=== PATIENT | male | born 1990 | race Caucasian/White ===

== ENCOUNTER 2018-01-04 16:44 | Inpatient (IN) ==
[2018-01-04] MEDS ORDERED: Sodium Chloride 0.9% 1,000 ML PRIMARY IV ONE ×2 (17:11→18:34)
[2018-01-04 17:20] LABS: BILIRUBIN,URINE SMALL (NEG); CLARITY,URINE Slightly Cloudy (CLEAR); COLOR,URINE YELLOW (Y); GLUCOSE, URINE (UA) NEGATIVE (NEG); OCCULT BLOOD,URINE MODERATE (NEG); PROTEIN,URINE 100 mg/dl (NEG)
[2018-01-04 17:22] LABS: Hematocrit [HCT] 40.9 % (42.0-52.0); Hemoglobin [HGB] 14.6 g/dL (14.0-18.0); MEAN CORPUSCULAR HEMOGLOBIN 31.7 PG (27-31); MEAN CORPUSCULAR HGB CONC 35.7 g/dL (33-37); MEAN CORPUSCULAR VOLUME 88.9 FL (80-90)
[2018-01-04 17:29] LABS: RBC,URINE 25-30 /hpf; SQUAMOUS EPITHELIAL CELL,UR RARE; URINE SAMPLE TYPE CLEAN CATCH URINE; WBC,URINE 25-30
[2018-01-04 17:30] LABS: BACTERIA,URINE FEW
[2018-01-04 17:31] LABS: BUN/CREATININE RATIO 11.87 (6-20); SERUM ALBUMIN 3.7 g/dL (3.5-4.8)
[2018-01-04 17:37] LABS: PLATELET MORPHOLOGY COMMENT NORMAL MORPHOLOGY (NORM); RBC MORPHOLOGY COMMENT NORMAL MORPHOLOGY (NORM)
[2018-01-04 17:38] LABS: BAND NEUTROPHILS % 17 % (0-10); BASOPHILS % (MANUAL) 0 % (0-1); EOSINOPHILS % (MANUAL) 0 % (0-8); MONOCYTES % (MANUAL) 6 % (0-12); NEUTROPHILS % (MANUAL) 74 % (50-80); WBC MORPHOLOGY COMMENT SEE COMMENTS (NORM)
[2018-01-04] MEDS ORDERED: cefTRIAXone Inj 2 GM in Sodium Chloride 0.9% 100 ML IV ONE (18:14)
[2018-01-04] MEDS ORDERED: ACETAMINOPHEN 500 MG TABLET PO ONE (18:17)
--- NOTE | 2018-01-04 18:21 | DI ---
CT ABDOMEN SCAN WITHOUT IV CONTRAST, 01/04/2018 5:40 PM : Clinical History: Flank pain. Previous Exam: None at this facility. Scans are performed from the lower lung bases through the liver and kidneys without IV contrast. Sagi ttal and coronal reformatted images are generated. No oral or rectal contrast was ordered. The lung bases are clear. The liver is normal. The gallbladder is grossly normal. There is no abnorma lity of the spleen, pancreas, and adrenal glands. 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 The duplicated ureters join approximately the mid-level of each ureter There is no hydronephrosis or hydroureter. No renal or ureteral calculi are present. There are no abnormal retrocrural or periaortic nodes. No ascites is present. READING: Normal CT abdomen scan without IV contrast. Both kidneys have a normal variant with duplicated collec ting systems in the upper and lower pole moieties. CT PELVIS SCAN WITHOUT IV CONTRAST, 01/04/2018 5:40 PM : Clinical History: See above. Previous Exam: None. Scans are performed from the inferior margin of the liver and kidneys to the symphysis pubis without IV contrast. Scans through the lower abdomen and pelvis show no masses or abnormal fluid collections. There is no adenopathy. The appendix is not visualized but there is no inflammatory mass either in the cecal tip or in the right lower quadrant. The small bowel, terminal ileum, and ileocecal valve are normal. High density material is present in the cecum and proximal ascending colon representing injection of over the counter medication or prescribe medication containing calcium or magnesium. There are no hernias . READING: Normal CT pelvis scan without IV contrast. The high density material in the cecum and ascending colon representing some ingested material containing calcium, magnesium, or even bismuth.
[2018-01-04] MEDS ORDERED: CALCIUM CARBONATE 500 MG (TUMS) CHEWABLE TABLET PO PRN (20:08)
[2018-01-04] MEDS ORDERED: DOCUSATE 100 MG CAPSULE PO PRN (20:08)
[2018-01-04] MEDS ORDERED: LIDOCAINE W/ SODIUM BICARB 0.5 ML SYR SUBD PRN (20:08)
--- NOTE | 2018-01-04 20:17 | PDOC ---
HPI - History of Present Illness Date of Service: 01/04/18 Time of Service: 20:00 Chief Complaint: Left-sided flank pain, fever and vomiting of a few days duration History of Present Illness: This is a 27 years old male with no significant past medical history who presented with history of fever, vomiting and left flank pain of 3 days' duration. He said his symptoms started last Thursday when he started to have frequency and dysuria and because of that he went to the urgent care clinic they diagnosed him with urinary tract infection they put him on Bactrim. He said he missed few pills but he continued to complain from having fever and then started to have pain on the left flank and vomiting the last 3 days. His fever was as high as 103 at home because of that he came into the ER. In the ER he was febrile and he had the white count 27,000 was given fluid cultures were taken when he was given Rocephin and was admitted. He said he feels better compared to when he came in. He did say that he had a loose stool yesterday. No other symptoms. Past Medical History Medical History: He had a history of ADHD and was on Adderall before but however he is not taking it. Surgical History: No history of surgeries Family History: Reviewed an Not Pertinent Past Social History: Smoking a pack a day, occasionally and drinks no drugs. Tobacco Use: Current Every Day Smoker In the Past 12 Months, Have Used or Abuse Any of the Following Substance: None Alcohol Use: Occasionally Medication / Allergies Allergies/Adverse Reactions: Allergies 3 Allergy/AdvReac Type Severity Reaction Status Date / Time No Known Allergies Allergy Verified 01/04/18 15:59 Review of Systems - Review of Systems All Systems: Reviewed & No Additional Complaints Except as Stated Exam - Vitals Vital Signs: Vital Signs Temperature 101.3 F Temperature Source Temporal Artery Scan Pulse Rate [Pulse Oximeter] 95 Respiratory Rate 24 Blood Pressure [Left Arm] 95/32 Pulse Ox 91 Oxygen Delivery Method Room Air Height 5 ft 10 in Weight 163 lb 8 oz - General Additional General Exam Details: Skin is flushed. He looks comfortable now. - Head Head Exam: Normal Inspection - Eye Eye Exam: POSITIVE: Normal Appearance - ENT ENT Exam: POSITIVE: Normal Exam - Neck Neck Exam: Normal Inspection - Respiratory Respiratory Exam: POSITIVE: Clear to Auscultation - Bilaterally - Cardiovascular Cardiovascular Exam: POSITIVE: RRR - GI/Abdominal GI/Abdominal Exam: POSITIVE: Normal Bowel Sounds, Non Tender, Non Distended, Soft, No Organomegaly Additional GI/Abdominal Exam Details: CVA tenderness present on the left side - Rectal Rectal Exam: POSITIVE: Deferred - External Exam: POSITIVE: Deferred Exam: POSITIVE: Deferred - Extremities Extremities Exam: POSITIVE: Normal Inspection - Back Back Exam: POSITIVE: Normal Inspection - Neurological Neurological Exam: POSITIVE: Alert, Oriented x 3, CN II-XII Intact, No Facial Droop, Speech Intact / Clear, Moves All Extremities Equally - Psychiatric Psychiatric Exam: POSITIVE: Normal Affect - Integumentary Integumentary Exam: POSITIVE: Normal Color Results - Labs CBC and BMP: 01/04/18 17:03 01/04/18 17:03 - Imaging Status: Report Reviewed by Me (CT abdomen 1. There is inflammatory/ infiltrative change involving the left perinephric fat consistent with the clinical history of acute pyelonephritis. There is no hydronephrosis or hydroureter or evidence of renal or ureteral calculi. 2. Incidental finding of punctate calcifications in the spleen consistent with previous exposure to either TB or histoplasmosis. 3. 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 Will put on IV fluid repeat his labs in the morning. Code(s): N12 - Tubulo-interstitial nephritis, not specified as acute or chronic (2) Renal failure Current Visit: Yes Status: Acute Comment: Not sure acute or chronic. We'll continue with IV fluids will repeat his labs in the morning. Code(s): N19 - Unspecified kidney failure
[2018-01-04] MEDS ORDERED: HYDROcodone-APAP 5 MG -325 MG TABLET PO PRN (20:33)
[2018-01-04] MEDS: Meropenem Inj 1 GM in Sodium Chloride 0.9% 100 ML IV SCH (20:38)
[2018-01-04] MEDS: Sodium Chloride 0.9% 1,000 ML PRIMARY IV SCH ×2 (20:39→23:53)
[2018-01-04] MEDS: ACETAMINOPHEN 325 MG TABLET PO PRN (23:50)
[2018-01-05] MEDS: ONDANSETRON 4 MG/2 ML VIAL IVP PRN ×2 (00:45→18:41)
--- NOTE | 2018-01-05 01:23 | PDOC ---
General Adult HPI - General Chief Complaint: Genitourinary Complaint Stated Complaint: uti not responding to antibiotics Date Seen by Provider: 01/04/18 Time Seen by Provider: 16:55 Source: POSITIVE: Patient, RN/MD, Old records Exam Limitations: POSITIVE: No limitations Nurse's Notes Reviewed & Considered: Yes EMS Report Reviewed & Considered: Verbal - History of Present Illness Initial Comment: The patient is a 27-year-old male.. He states that 9 days ago he was seen in the clinic for hematuria and left back pain. He reportedly had a urinalysis that time which showed a urinary tract infection, which subsequently grew out Escherichia coli. He was treated with Bactrim. He states that for the past 3 or 4 days his left flank pain has worsened and he's developed fevers and chills. He was seen back in the clinic today and then was sent to the emergency room by ambulance. Patient has not had any history of surgery. No allergies. He denies any known medical problems. He states he vomited this morning. Have you received a tetanus shot in the past 10 years?: No Body Location Affected: REPORTS: Back (Left flank), Other (Fevers and chills) Timing: REPORTS: Gradual, Getting Worse Duration: >1 week (9 days) Severity: Moderate Quality: REPORTS: "Pain" (Left flank) Context: DENIES: None, Sitting, Standing, Activity, Emotional stress, Coughing, Recent Trauma, Recent Surgery, Sleep, Rest, Lifting, Turning, Bending, Fall, Near Fall, Other Modifying Factors: improves with: Vomiting (This morning) Similar Symptoms Previously: Yes (as above) Recent Care Received: REPORTS: Recently Seen, Treated by MD (As above) Any Prior Injuries Related to Current Complaint?: No - Patient Allergies Allergies/Adverse Reactions: Allergies 3 Allergy/AdvReac Type Severity Reaction Status Date / Time No Known Allergies Allergy Verified 01/04/18 15:59 Past Medical History - heen HEENT History: Denies History Cardiovascular History: Denies History Respiratory History: Denies History Gastrointestinal History: Denies History Genitourinary History: Recurrent UTI Endocrine History: Denies History Musculoskeletal History: Denies History Neurological History: Denies History Blood Disorders: Denies History Psychiatric History: Bi Polar Disorder, ADHD History of Sexually Transmitted Diseases: No Male Reproductive History: Denies History Cancer History: Denies History In Past Year Been Physically Harmed or Verbally Threatened: No History of MDRO: No Tobacco Use: Current Every Day Smoker In the Past 12 Months, Have Used or Abuse Any Substance: None Previous Surgical History: No Significant Family History: No pertinent family hx Past Medical History Reviewed: Reviewed - No Changes ROS - Limitations ROS Limitations: No Limitations Constitution: REPORTS: Chills, Fever Cardiovascular: REPORTS: Denies Cardiac Symptoms Respiratory: REPORTS: Denies Resp Symptoms Neurological: REPORTS: Denies Neuro Symptoms Gastrointestinal: REPORTS: Denies GI Symptoms, Other (Left flank pain) Endocrine: REPORTS: Denies Symptoms Musculoskeletal: REPORTS: Denies MS Symptoms Genitourinary: REPORTS: Dysuria (At onset), Flank Pain (Left), Hematuria (At onset) Eyes: REPORTS: Denies Symptoms ENT: REPORTS: Denies Symptoms Skin: REPORTS: Denies Skin Symptoms Lympathic: REPORTS: Denies Lympathic Symptoms Immunologic: POSITIVE: Denies Symptoms Psychiatric: POSITIVE: Denies Psych Symptoms General Adult Exam - General Appearance General Appearance: POSITIVE: Alert, Cooperative, No Acute Distress, No Evidence of Trauma - HEENT HEENT: POSITIVE: Head Inspection Nml, Eyes Inspection Nml, Ears Inspection Nml, Nose Inspection Nml, Oral/Dental Inspect. Nml, Pharynx Inspect. Nml, PERRL, EOMI - Pupils Pupil Size: 3 mm: Bilateral (PERRLA) - Neck Neck: POSITIVE: Normal Inspection, Thyroid Normal - Respiratory Respiratory: POSITIVE: No Respiratory Distress, Breath Sounds Normal, Chest Non- Tender - Cardiovascular Cardiovascular: POSITIVE: Regular Rate & Rhythm, No Murmur, No Gallop, PMI Normal Peripheral Pulses: Radial (R): 2+, Radial (L): 2+ - Abdomen Abdomen: Soft: (All Quadrants), Normal Bowel Sounds: (All Quadrants), Denies Tenderness: (All Quadrants), No Splenomegaly: (All Quadrants), No Hepatomegaly: (All Quadrants), No Guarding: (All Quadrants), No Rebound: (All Quadrants), No Palpable Pulse: (All Quadrants), No Palpabale Mass: (All Quadrants), No Distention: (All Quadrants), No Rigidity: (All Quadrants) - Back Back: POSITIVE: CVA Tenderness - Skin Skin: POSITIVE: Normal Color, Warm, Dry, No Rash - Extremities Extremity: Non-Tender: (All Extremities), Normal ROM: (All Extremities), Normal Inspection: (All Extremities) - Neurological / Psychological Neurological: POSITIVE: Oriented X3, 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 Described pain and pain on percussion General Adult Progress - Results Reviewed by me Xrays/CTs/US Reviewed by me: Yes Discussed with Radiologist: Yes Radiology Findings: CT scan abdomen and pelvis with IV contrast shows duplicated renal collecting systems bilaterally Lab Results Reviewed by Me: Yes Lab Results:: Laboratory Results 3 01/04/18 01/04/18 01/04/18 17:03 17:03 17:03 WBC RBC Hgb Hct MCV MCH MCHC RDW Std Deviation RDW Coeff of Letitia Plt Count MPV Neutrophils % (Manual) Band Neutrophils % Lymphocytes % (Manual) Monocytes % (Manual) Eosinophils % (Manual) Basophils % (Manual) Metamyelocytes % Myelocytes % Promyelocytes % Blast Cells WBC Morphology Comment Plt Morphology Comment RBC Morph Comment Sodium Potassium Chloride Carbon Dioxide Anion Gap BUN Creatinine Estimated GFR BUN/Creatinine Ratio Glucose Calculated Osmolality Lactic Acid 1.2 Calcium Total Bilirubin AST ALT Alkaline Phosphatase C-Reactive Protein 22.8 H Total Protein Albumin Globulin Albumin/Globulin Ratio Ur Collection Type Clean catch urine Urine Color Yellow Urine Clarity Slightly cloudy Urine pH 6.0 Ur Specific [place] 1.020 Urine Protein 100 A Urine Glucose (UA) Negative Urine Ketones 40 Urine Occult Blood Moderate H Urine Nitrate Positive H Urine Bilirubin Small Urine Urobilinogen 4.0 Ur Leukocyte Esterase Trace Urine RBC 25-30 Urine WBC 25-30 Ur Squamous Epith Cells Rare Ur Renal Epithelial Cell None Urine Crystals None Urine Bacteria Few Urine Casts None Urine Mucus Many Urine Trichomonas None Urine Yeast None Ur Culture Indicated? Culture not set 3 01/04/18 01/04/18 17:03 17:03 WBC 27.07 H RBC 4.60 L Hgb 14.6 Hct 40.9 L MCV 88.9 MCH 31.7 H MCHC 35.7 RDW Std Deviation 41.2 RDW Coeff of Letitia 12.8 Plt Count 233 MPV 10.0 Neutrophils % (Manual) 74 Band Neutrophils % 17 H Lymphocytes % (Manual) 3 L Monocytes % (Manual) 6 Eosinophils % (Manual) 0 Basophils % (Manual) 0 Metamyelocytes % Not Reportable Myelocytes % Not Reportable Promyelocytes % Not Reportable Blast Cells Not Reportable WBC Morphology Comment See comments Plt Morphology Comment Normal morphology RBC Morph Comment Normal morphology Sodium 136 Potassium 3.9 Chloride 101 Carbon Dioxide 25 Anion Gap 10 BUN 19 Creatinine 1.6 H Estimated GFR 53 BUN/Creatinine Ratio 11.87 Glucose 121 H Calculated Osmolality 284.0 Lactic Acid Calcium 8.6 L Total Bilirubin 0.9 AST 23 ALT 32 Alkaline Phosphatase 77 C-Reactive Protein Total Protein 6.7 Albumin 3.7 Globulin 3.0 Albumin/Globulin Ratio 1.20 L Ur Collection Type Urine Color Urine Clarity Urine pH Ur Specific [place] Urine Protein Urine Glucose (UA) Urine Ketones Urine Occult Blood Urine Nitrate Urine Bilirubin Urine Urobilinogen Ur Leukocyte Esterase Urine RBC Urine WBC Ur Squamous Epith Cells Ur Renal Epithelial Cell Urine Crystals Urine Bacteria Urine Casts Urine Mucus Urine Trichomonas Urine Yeast Ur Culture Indicated? CBC and BMP: 01/04/18 17:03 01/04/18 17:03 - Patient's Progress Pain Medication Addressed: POSITIVE: Patient Refused School/Work Release Addressed: POSITIVE: Not Applicable Re-Examine Time: 17:30 Re-Examine Comment: Patient given 2 g Rocephin IV; blood cultures drawn before antibiotics. Re-Examine Time:: 18:20 Re-Examine Comment: Case discussed with Dr. Morales, hospitalist, and patient admitted for further evaluation and treatment. Status: POSITIVE: Unchanged, Re-Examined Antibiotics Given: Yes (Rocephin, 2 g IV) - Consult Consult (If Yes, Name of Consulting MD & Time Called): Yes (Dr. Morales, hospitalist, [id number]) Consulting MD will see pt:: [place] [facility] [place] Counseled: POSITIVE: Patient, RE: Lab Results, RE: Radiology Results, RE: DX, RE : Need for F/U Patient Care Time - Estimated PCT Patient Care Time (In Minutes): 50 Vital Signs - Recent Vital Signs Vital Signs: Vital Signs (Last 8 hours) Temp Pulse Resp BP Pulse Ox 01/04/18 19:39 101.3 F H 95 24 95/32 91 01/04/18 18:30 104.6 F H - VS Reviewed Vital Signs Reviewed: Yes Discharge Clinical Impression: Pyelonephritis Discharge Disposition: Admit to Inpatient Condition: Fair Date Decision to Admit to Inpatient: 01/04/18 Time Decision to Admit to Inpatient: 17:30
[2018-01-05] MEDS: Meropenem Inj 1 GM in Sodium Chloride 0.9% 100 ML IV SCH ×2 (04:15→12:19)
[2018-01-05 05:08] LABS: BASOPHILS # (AUTO) 0.02 10*3/UL; BASOPHILS % (AUTO) 0.1 % (0-1); EOSINOPHILS # (AUTO) 0.01 10*3/UL; EOSINOPHILS % (AUTO) 0 % (0-8); Hematocrit [HCT] 37.7 % (42.0-52.0); LYMPHOCYTES # (AUTO) 1.38 10*3/uL; MEAN CORPUSCULAR HGB CONC 34.5 g/dL (33-37); MEAN CORPUSCULAR VOLUME 89.8 FL (80-90); MEAN PLATELET VOLUME 10.3 FL (7.4-12.2); MONOCYTES # (AUTO) 2.61 10*3/UL (0.3-0.8); MONOCYTES % (AUTO) 10.5 % (5-15); NEUTROPHILS # (AUTO) 20.74 10*3/UL; NEUTROPHILS % (AUTO) 83.5 % (50-80)
[2018-01-05 05:14] LABS: BLOOD UREA NITROGEN 15 mg/dL (7-22); BUN/CREATININE RATIO 13.63 (6-20)
[2018-01-05 05:41] LABS: PLATELET MORPHOLOGY COMMENT NORMAL MORPHOLOGY (NORM); RBC MORPHOLOGY COMMENT NORMAL MORPHOLOGY (NORM); WBC MORPHOLOGY COMMENT NORMAL MORPHOLOGY (NORM)
[2018-01-05] MEDS: ACETAMINOPHEN 325 MG TABLET PO PRN ×2 (06:54→21:33)
[2018-01-05] MEDS: Sodium Chloride 0.9% 1,000 ML PRIMARY IV SCH ×3 (07:49→23:53)
--- NOTE | 2018-01-05 15:13 | PDOC(PROG) ---
Date and Time of Service: 01/05/2018, 1510 Interval History: Patient states that he feels better. Left flank pain is better. Fevers are better. He still feels a little nauseous but overall better. Objective : Data - Labs CBC and BMP: 01/05/18 04:37 01/05/18 04:37 Additional Lab Results: 01/05/18 01/05/18 04:37 04:37 Neut % (Auto) 83.5 H Lymph % (Auto) 5.5 L Total Protein 5.7 L Albumin 3.0 L Globulin 2.7 Objective : Exam - General General Appearance: No Acute Distress, Cooperative Additional General Exam Details: Vital Signs - Last Taken Temperature 98.2 F 01/05/18 11:25 Pulse Rate 74 01/05/18 11:25 Respiratory Rate 18 01/05/18 11:25 Blood Pressure 100/57 01/05/18 11:25 Pulse Ox 92 01/05/18 11:25 - Head Head Exam: Normal Inspection, Normocephalic, Atraumatic - Eye Eye Exam: No Scleral Icterus - ENT ENT Exam: Mucous Membranes Moist - Respiratory Respiratory Exam: Clear to Auscultation - Bilaterally, Breathing Non Labored - Cardiovascular Cardiovascular Exam: RRR, No Murmur, No Clicks, No Gallops, No Rubs, No JVD - GI/Abdominal GI/Abdominal Exam: Normal Bowel Sounds, Non Tender, Non Distended, Soft - Rectal Rectal Exam: Normal Prostate (Prostate did not feel boggy as expected, but there was more tenderness than I would've expected for a normal prostate exam.) , Prostate Tenderness - Extremities Extremities Exam: No Clubbing Present, No Edema Present, No Cyanosis Present - Neurological Neurological Exam: Alert, Oriented x 3, No Facial Droop, Speech Intact / Clear, Moves All Extremities Equally - Psychiatric Psychiatric Exam: Normal Affect, Normal Mood Assessment and Plan - Patient Problems (1) Prostatitis Current Visit: Yes Status: Acute Code(s): N41.9 - Inflammatory disease of prostate, unspecified Qualifiers: Prostatitis type: acute Qualified Code(s): N41.0 - Acute prostatitis (2) Renal failure Current Visit: Yes Status: Acute Code(s): N19 - Unspecified kidney failure Qualifiers: Renal failure chronicity: acute (3) Acute urinary tract infection Current Visit: Yes Status: Acute Code(s): N39.0 - Urinary tract infection, site not specified (4) Pyelonephritis Current Visit: Yes Status: Suspected Code(s): N12 - Tubulo-interstitial nephritis, not specified as acute or chronic - Assessment / Plan Additional Assessment/Plan Details: Given the dual collecting system on both kidneys, I spoke with urology, Dr. Arauz. He stated that there could be some reflux, but it would not be treated any differently. Based on the high fevers and the description of the clinical case, he suggested that this is more likely acute prostatitis and suggested consideration for a digital rectal examination, and if positive for acute prostatitis, then consider 6 weeks of antibiotic therapy. Given the patient's age, positive pain on digital rectal examination worsening expected for a normal prostate exam, I think we should go ahead and go back to Rocephin for therapy. We must also think about acute gonococcal disease, and I think we should screen the patient for any STDs. Continue antibiotics, IV fluids, and check PSA along with CBC with differential tomorrow. Urology follow-up as an outpatient. I would like to continue IV antibiotics until the patient is been fever free for about 48 hours if possible. Still waiting for culture results.
[2018-01-05] MEDS: cefTRIAXone Inj 2 GM in Sodium Chloride 0.9% 100 ML IV SCH (16:25)
[2018-01-06] MEDS: ACETAMINOPHEN 325 MG TABLET PO PRN (03:07)
[2018-01-06] MEDS: Sodium Chloride 0.9% 1,000 ML PRIMARY IV SCH ×2 (06:46→15:10)
[2018-01-06 06:59] LABS: BASOPHILS # (AUTO) 0.04 10*3/UL; BASOPHILS % (AUTO) 0.2 % (0-1); EOSINOPHILS # (AUTO) 0.04 10*3/UL; EOSINOPHILS % (AUTO) 0.2 % (0-8); Hematocrit [HCT] 35.9 % (42.0-52.0); Hemoglobin [HGB] 12.6 g/dL (14.0-18.0); LYMPHOCYTES # (AUTO) 2.08 10*3/uL; MEAN CORPUSCULAR HEMOGLOBIN 31.4 PG (27-31); MEAN CORPUSCULAR HGB CONC 35.1 g/dL (33-37); MEAN CORPUSCULAR VOLUME 89.5 FL (80-90); MEAN PLATELET VOLUME 9.8 FL (7.4-12.2); MONOCYTES # (AUTO) 2.02 10*3/UL (0.3-0.8); MONOCYTES % (AUTO) 11.5 % (5-15); NEUTROPHILS # (AUTO) 13.26 10*3/UL; NEUTROPHILS % (AUTO) 75.6 % (50-80); RED BLOOD COUNT 4.01 10^6/uL (4.70-6.10)
[2018-01-06 07:17] LABS: BLOOD UREA NITROGEN 11 mg/dL (7-22); BUN/CREATININE RATIO 15.71 (6-20)
[2018-01-06 07:24] LABS: PLATELET MORPHOLOGY COMMENT NORMAL MORPHOLOGY (NORM); RBC MORPHOLOGY COMMENT NORMAL MORPHOLOGY (NORM); WBC MORPHOLOGY COMMENT NORMAL MORPHOLOGY (NORM)
--- NOTE | 2018-01-06 15:07 | PDOC(PROG) ---
Date and Time of Service: 01/06/2018, 1504 Interval History: Patient doing much better. No flank pain. 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 I think it was more related to his prostatitis/possible pyelonephritis although no straining around the kidneys or perinephric stranding. Regarding Imaging, That Was Negative for Pyelonephritis. No chest pain and no shortness breath and no nausea or vomiting. Objective : Data - Labs CBC and BMP: 01/06/18 06:45 01/06/18 06:45 Additional Lab Results: 01/06/18 06:45 PSA Screen 1.67 Objective : Exam - General General Appearance: No Acute Distress, Cooperative Additional General Exam Details: Vital Signs - Last Taken Temperature 99.3 F 01/06/18 12:13 Pulse Rate 66 01/06/18 12:13 Respiratory Rate 18 01/06/18 12:13 Blood Pressure 122/67 01/06/18 12:13 Pulse Ox 95 01/06/18 12:13 - Eye Eye Exam: No Scleral Icterus - ENT ENT Exam: Mucous Membranes Moist - Respiratory Respiratory Exam: Clear to Auscultation - Bilaterally, Breathing Non Labored - Cardiovascular Cardiovascular Exam: RRR, No Murmur, No Clicks, No Gallops, No Rubs, No JVD - GI/Abdominal GI/Abdominal Exam: Normal Bowel Sounds, Non Tender, Non Distended, Soft - Extremities Extremities Exam: No Clubbing Present, No Edema Present, No Cyanosis Present - Neurological Neurological Exam: Alert, Oriented x 3, No Facial Droop, Speech Intact / Clear, Moves All Extremities Equally Assessment and Plan - Patient Problems (1) Prostatitis Current Visit: Yes Status: Acute Code(s): N41.9 - Inflammatory disease of prostate, unspecified Qualifiers: Prostatitis type: acute Qualified Code(s): N41.0 - Acute prostatitis (2) Renal failure Current Visit: Yes Status: Acute Code(s): N19 - Unspecified kidney failure Qualifiers: Renal failure chronicity: acute (3) Acute urinary tract infection Current Visit: Yes Status: Acute Code(s): N39.0 - Urinary tract infection, site not specified (4) Pyelonephritis Current Visit: Yes Status: Suspected Code(s): N12 - Tubulo-interstitial nephritis, not specified as acute or chronic - Assessment / Plan Additional Assessment/Plan Details: Renal failure improved, resolved. Continue Rocephin for now. Final ID is still pending, greater than 25,000 colony-forming units but this was a partially treated event. CAITLIN was a little lower than I would've expected for pain on prostate examination, but I think we should treat as prostatitis. We will try to get set up with urology, Dr. Arauz , in 1 week to reevaluate. I would like the patient to be fever free for about 48 hours, if possible, prior to discharge before switching to oral medications although he is no longer having any vomiting. We will try to get him set up with a primary doctor here to follow this as well. We discussed risks of fluoroquinolones, but may need to reside to this for treatment of prostatitis. Given his work, that may not be feasible as he is a rough neck, and we may need to consider Bactrim over a 6 week course. That is if still sensitive to Bactrim. If fever free overnight, may even consider outpatient Rocephin for a few more days but I would like to see how the fever curve looks tomorrow. Pain prescription for outpatient should the pain return although this will be a very short limited prescription as I think Tylenol and Motrin were likely suffice.
[2018-01-06] MEDS: cefTRIAXone Inj 2 GM in Sodium Chloride 0.9% 100 ML IV SCH (15:13)
[2018-01-06 17:04] VITALS: RESP 20
[2018-01-06 19:59] VITALS: BP 127/83; TEMP 99.2; O2SAT 92
[2018-01-06] MEDS ORDERED: Levofloxacin (Premix) 500 MG/100 ML BAG IV ONE (20:12)
--- NOTE | 2018-01-06 20:27 | DCSUMMARY ---
Hospitalization Summary Admit Date: 01/04/2018 Discharge Date: 01/06/18 Primary Diagnosis:: acute prostatitis secondary to Escherichia coli Hospital Course: This very pleasant 27-year-old male who has had some issues with recent urinary tract infection related Escherichia coli. He had admitted noncompliance and missed several Bactrim doses on a pansensitive (with the exception of Macrodantin) Escherichia coli earlier in December. He presented here with fevers, and it was felt that he probably had pyelonephritis and a CT scan was done. It did not show any evidence of stranding on the kidneys. However the patient was also acutely dehydrated and had acute prerenal azotemia and required fluids to improve that so the CT scan could not be done with contrast. He had some left flank pain that resolved completely with antibiotic therapy here. He had meropenem and Rocephin during the hospital stay and a dose of Levaquin prior to discharge. Further evaluation and rectal examination revealed significant prostate tenderness. I spoke with the urologist who felt that based on the description this was probably more likely prostatitis than it was pyelonephritis. The difference would be several weeks of antibiotic therapy via their recommendation. Be that as it may, the fevers did decrease although the patient still had a temperature of 100F at 3 AM on 01/06/2018. He is quite worried about the cost of the hospital stay though and wishes to leave. Although I advised against leaving the hospital because I would like to watch and see if these fevers improved, the patient has been planning to leave AGAINST MEDICAL ADVICE. I spoke with the RN regarding this. She overheard the discussion of the patient and his girlfriend plotting to have the patient go down to the car that she would drive and then take him out of the hospital. In this situation, we will just do the best that we can, and I recommended that the patient stay on Levaquin. This is due to the resistance pattern of the bacteria and acute prostatitis with the Escherichia coli being resistant to Bactrim now. I've advised patient not to miss a single dose of Levaquin. I advised him of the risks of tendon rupture, transient eye problems, and other issues and he knows to watch for those and I told him that if any of those happen that he should see a medical professional immediately. I advised him to follow up with the urologist so that they can determine whether or not they can stop this course of antibiotics earlier than 6 weeks. On my review of the literature and recommendations from [employer], these therapies can range anywhere from 10 days at a minimum to as long as 6 weeks. 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 I spoke with urology about this and they said it's a normal anatomic variant and there would be nothing that would be done from a surgical perspective. However, they advised telling the patient about this anatomic variant and reminding him to tell anyone about this in the future should he have kidney stones as sometimes the wrong ureter can be treated. Currently the patient is afebrile, he denies any flank pain, no nausea or vomiting, he is tolerating food, no chest pain and no shortness of breath. Although I advised against it, the patient wishes to go home. Assessment and Plan: 1. As per discharge assessments noted 2. Disposition: Patient discharged home. 3. Condition on discharge, stable and improved. 4. Diet: regular diet 5. Activities: resume normal activities, but I did advise to stop tobacco. I advised him that in the future, he should follow his antibiotic regimens to avoid complications such as multidrug resistant organisms 6. Follow-Up: 1. See urology in 7 days or so 7. Medications at the Time of Discharge: Home Medications 3 Medication Instructions Recorded Confirmed Type HYDROcodone/APAP 5/325 Tab [Harrison 1 tab PO Q4H PRN #15 tab 01/06/18 Rx 5/325 Tab] Levofloxacin [Levaquin] 500 mg PO DAILY #42 tab 01/06/18 Rx I advised the patient take Tylenol [id number] for fevers. Although I do not think he'll have significant flank pain, the patient was worried that he may have had this from a muscle strain so we'll do a very short course of hydrocodone when necessary pain. I told the patient overall felt Tylenol and Motrin would probably be a better choice for this type of pain. 8. Time, care, counseling and coordination of care for this discharge is greater than 30 minutes. Exam - Vitals Vital Signs: Vital Signs Temperature 99.2 F Temperature Source Oral Pulse Rate [Pulse Oximeter] 74 Pulse Rate 95 Respiratory Rate 20 Blood Pressure [Right Arm] 127/83 Blood Pressure [Left Arm] 100/57 Blood Pressure 85/44 Pulse Ox 92 Oxygen Flow Rate 91 Oxygen Delivery Method Room Air Height 5 ft 10 in Weight 172 lb 11.2 oz - General General Appearance: No Acute Distress, Cooperative - Head Head Exam: Normal Inspection, Normocephalic, Atraumatic - Eye Eye Exam: POSITIVE: No Scleral Icterus - ENT ENT Exam: POSITIVE: Mucous Membranes Moist - Respiratory Respiratory Exam: POSITIVE: Clear to Auscultation - Bilaterally, Breathing Non Labored - Cardiovascular Cardiovascular Exam: POSITIVE: RRR, No Murmur, No Clicks, No Gallops, No Rubs, No JVD - GI/Abdominal GI/Abdominal Exam: POSITIVE: Normal Bowel Sounds, Non Tender, Non Distended, Soft - Extremities Extremities Exam: POSITIVE: No Clubbing Present, No Edema Present, No Cyanosis Present - Neurological Neurological Exam: POSITIVE: Alert, Oriented x 3, Normal Gait, No Facial Droop, Speech Intact / Clear, Moves All Extremities Equally - Psychiatric Psychiatric Exam: POSITIVE: Normal Affect, Normal Mood Data Peritnent Studies: 01/04/18 01/06/18 01/06/18 17:03 06:45 06:45 WBC 27.07 H 17.54 H Hgb 12.6 L Hct 35.9 L Plt Count 211 Sodium 138 Potassium 4.1 Chloride 107 Carbon Dioxide 24 Anion Gap 7 BUN 11 Creatinine 0.7 Estimated GFR > 60 BUN/Creatinine Ratio 15.71 Glucose 110 Calculated Osmolality 285.0 Calcium 7.5 L 01/04/18 16:40 Urine Culture - Final Urine,Clean Catch Escherichia Coli This is a drug resistant Escherichia coli strain to Bactrim, Macrodantin, and amoxicillin. I discussed with the lab and it is sensitive to levofloxacin and ciprofloxacin. Blood cultures were negative at 48 hours Patient Problems - Patient Problem List (1) Prostatitis Current Visit: Yes Status: Acute Code(s): N41.9 - Inflammatory disease of prostate, unspecified Qualifiers: Prostatitis type: acute Qualified Code(s): N41.0 - Acute prostatitis Category: Medical (2) Renal failure Current Visit: Yes Status: Resolved Comment: Prerenal and related to dehydration. No evidence of obstruction Code(s): N19 - Unspecified kidney failure Qualifiers: Renal failure chronicity: acute Category: Medical (3) Acute urinary tract infection Current Visit: Yes Status: Acute Code(s): N39.0 - Urinary tract infection, site not specified Category: Medical (4) Pyelonephritis Current Visit: Yes Status: Suspected Comment: This difficult to completely rule out pyelonephritis as this was a noncontrast CT scan, but with no perinephric stranding and with symptoms a little more consistent with acute prostatitis, it could very well be that the infection is isolated there. The treatment course over the first 2 weeks would be the same. Urology follow-up has been recommended the patient. Code(s): N12 - Tubulo-interstitial nephritis , not specified as acute or chronic Category: Medical
[2018-01-07] MEDS ORDERED: LEVOFLOXACIN 500 MG TABLET PO SCH (09:00)
== END 2018-01-06 21:44 | disposition home or self-care (01) | DRG 728 ==
LOC: ER 16:44 → MED/SURG 18:44
PROVIDERS: ADMIT Internal Medicine; ATTEND Internal Medicine